=== PATIENT | female | born 1955 | race Caucasian/White ===

== ENCOUNTER 2020-11-21 14:41 | Emergency (ER) | payer MEDICARE, SELFPAY ==
[~2020-11-21 14:41] MED LIST: 3IN1 COMMODE XX; AMARYL2 MG PO; ASPIRIN EC81 MG PO; AVAPRO300 MG PO; CETIRIZINE HCL10 MG PO; COREG 6.25MG6.25 MG PO; FUROSEMIDE 20MG20 MG PO; GLUCAGON EMERGEN1 MG IM; LIPITOR20 MG PO; METFORMIN HCL500 MG PO; NORCO 5-325 TA1 EACH PO; ONGLYZA5 MG PO; PANTOPRAZOLE SO40 MG PO; PRISTIQ25 MG PO; SINGULAIR10 MG PO; SPIRIVA18 MCG INH; SYMBICORT 16010.2 GM INH; VENTOLIN HFA IN18 GM INH; WHEELCHAIR XX
[2020-11-21 17:45] LABS: BILIRUBIN NEGATIVE (NEGATIVE); BLOOD NEGATIVE Ery/uL (NEGATIVE); CLARITY CLEAR (CLEAR); COLOR YELLOW (YELLOW); GLUCOSE (U) NORMAL (NORMAL); LEUKOCYTES 1+ Leu/uL (NEGATIVE); NITRITE NEGATIVE (NEGATIVE); PROTEIN NEGATIVE (NEGATIVE); UROBILINOGEN 0.2 mg/dL (0.2-1.0); pH 5.5 (5.0-9.0)
[2020-11-21 17:49] LABS: BACTERIA TRACE
[2020-11-21 18:11] LABS: BASOPHIL 0.8 % (0-2); EOSINOPHIL 5.2 % (0-7); HGB 14.2 g/dl (12.5-16.0); LYMPHOCYTE 38.6 % (15-48); MCH 31.8 pg (25.0-31.0); MCV 96.2 fL (78.0-100.0); MONOCYTE 7.4 % (0-12); MPV 11.6 fL (6.0-9.5); NEUTROPHIL 47.6 % (41-80); NRBC 0; PLT 244 K/uL (150-400); RBC 4.47 M/uL (4.20-5.40); RDW 13.2 % (11.5-14.0); WBC 14.2 K/uL (4.0-10.5)
[2020-11-21 18:50] LABS: ALBUMIN 3.1 g/dL (3.4-5.0); BILIRUBIN - TOTAL 0.7 mg/dL (0.2-1.0); BUN/CREAT RATIO (CALC) 34.1 RATIO; CREATININE 1.32 mg/dL (0.51-0.95); GLOBULIN (CALCULATION) 3.8 g/dL; POTASSIUM 3.5 mmol/L (3.5-5.1); TOTAL PROTEIN 6.9 g/dL (6.4-8.2)
[2020-11-21] MEDS ORDERED: CIPRO500 MG PO (19:04)
[2020-11-21] MEDS ORDERED: BENTYL10 MG PO (19:04)
== END 2020-11-21 19:18 | disposition home or self-care (01) ==
LOC: FER 14:41
PROVIDERS: Emergency Medicine
DX: K52.9 Noninfective gastroenteritis and colitis, unspecified (principal); I12.9 Hypertensive chronic kidney disease with stage 1 through stage 4 chronic kidney disease, or unspecified chronic kidney disease; E11.22 Type 2 diabetes mellitus with diabetic chronic kidney disease; N18.9 Chronic kidney disease, unspecified; Z87.09 Personal history of other diseases of the respiratory system; Z99.81 Dependence on supplemental oxygen; Z88.5 Allergy status to narcotic agent; Z88.0 Allergy status to penicillin; Z90.49 Acquired absence of other specified parts of digestive tract
CPT/HCPCS: 36415; 80053; 81001; 83690; 85025; 99284; J7030

== ENCOUNTER 2020-12-16 10:04 | Inpatient (IN) | payer MEDICARE, SELFPAY ==
[~2020-12-16 10:04] MED LIST changes: +BENTYL10 MG PO; +CIPRO500 MG PO
[2020-12-16] MEDS ORDERED: OFEV150 MG PO (12:18)
[2020-12-16 13:32] LABS: BASOPHIL 0.9 % (0-2); EOSINOPHIL 3.9 % (0-7); HCT 40.1 % (37.0-47.0); HGB 13.6 g/dl (12.5-16.0); LYMPHOCYTE 36.3 % (15-48); MCH 32.2 pg (25.0-31.0); MCHC 33.9 g/dL (32.0-36.0); MONOCYTE 6.5 % (0-12); MPV 11.5 fL (6.0-9.5); NEUTROPHIL 51.9 % (41-80); NRBC 0; PLT 254 K/uL (150-400); RBC 4.22 M/uL (4.20-5.40); RDW 13.3 % (11.5-14.0); WBC 14.1 K/uL (4.0-10.5)
[2020-12-16 13:54] LABS: ALBUMIN 3.2 g/dL (3.4-5.0); BILIRUBIN - TOTAL 0.8 mg/dL (0.2-1.0); CREATININE 1.48 mg/dL (0.51-0.95); GLOBULIN (CALCULATION) 3.5 g/dL; MAGNESIUM 1.1 mg/dL (1.8-2.4); POTASSIUM 3.3 mmol/L (3.5-5.1); TOTAL PROTEIN 6.7 g/dL (6.4-8.2)
[2020-12-16 17:52] LABS: BILIRUBIN NEGATIVE (NEGATIVE); BLOOD NEGATIVE Ery/uL (NEGATIVE); CLARITY CLEAR (CLEAR); COLOR YELLOW (YELLOW); GLUCOSE (U) NORMAL (NORMAL); LEUKOCYTES NEGATIVE Leu/uL (NEGATIVE); NITRITE NEGATIVE (NEGATIVE); PROTEIN NEGATIVE (NEGATIVE); UROBILINOGEN 0.2 mg/dL (0.2-1.0)
[2020-12-17 05:34] LABS: BASOPHIL 0.8 % (0-2); EOSINOPHIL 8.1 % (0-7); HCT 36.9 % (37.0-47.0); HGB 12.6 g/dl (12.5-16.0); LYMPHOCYTE 42.9 % (15-48); MCH 32.1 pg (25.0-31.0); MCHC 34.1 g/dL (32.0-36.0); MCV 94.1 fL (78.0-100.0); MONOCYTE 7.2 % (0-12); MPV 11.2 fL (6.0-9.5); NEUTROPHIL 40.5 % (41-80); NRBC 0; PLT 216 K/uL (150-400); RBC 3.92 M/uL (4.20-5.40); RDW 13.2 % (11.5-14.0); WBC 10.5 K/uL (4.0-10.5)
[2020-12-17 05:51] LABS: BUN/CREAT RATIO (CALC) 21.5 RATIO; C-REACTIVE PROTEIN 1.5 mg/dL (<=0.90); CREATININE 1.21 mg/dL (0.51-0.95); POTASSIUM 3.6 mmol/L (3.5-5.1)
[2020-12-18 06:02] LABS: BASOPHIL 0.6 % (0-2); EOSINOPHIL 5.1 % (0-7); HCT 38.8 % (37.0-47.0); LYMPHOCYTE 42.2 % (15-48); MCH 32.3 pg (25.0-31.0); MCHC 33.5 g/dL (32.0-36.0); MCV 96.3 fL (78.0-100.0); MONOCYTE 7.4 % (0-12); MPV 11.4 fL (6.0-9.5); NEUTROPHIL 44.2 % (41-80); NRBC 0; PLT 236 K/uL (150-400); RBC 4.03 M/uL (4.20-5.40); RDW 13.7 % (11.5-14.0); WBC 14.8 K/uL (4.0-10.5)
[2020-12-18 06:23] LABS: BUN/CREAT RATIO (CALC) 15.2 RATIO; CREATININE 0.92 mg/dL (0.51-0.95); MAGNESIUM 2.3 mg/dL (1.8-2.4); POTASSIUM 3.5 mmol/L (3.5-5.1)
[2020-12-19] MEDS ORDERED: COLESTID1 GM PO (10:24)
--- NOTE | 2020-12-19 12:56 | NUR ---
1200-PT DISCHARGED HOME. DISCUSSED DISCHARGE INSTRUCTIONS WITH VIVIANA. IN STABLE CONDITION. NO NEEDS FOR EQUIPMENT OR HH. PATIENT HAS HOME O2-2L
--- NOTE | 2020-12-20 10:06 | NUR ---
PT. D/C HOME ON 12/19/20. PT HAS NO NEEDS. HAS HOME O2.
== END 2020-12-19 12:02 | disposition home or self-care (01) | DRG 392 ==
LOC: FMS 10:04
PROVIDERS: Internal Medicine; ADMIT Surgery
PROC: 0DBL8ZX Excision of Transverse Colon, Via Natural or Artificial Opening Endoscopic, Diagnostic (ICD-10-PCS; 2020-12-18)
PROC: 0DBM8ZX Excision of Descending Colon, Via Natural or Artificial Opening Endoscopic, Diagnostic (ICD-10-PCS; 2020-12-18)
PROC: 0DBB8ZX Excision of Ileum, Via Natural or Artificial Opening Endoscopic, Diagnostic (ICD-10-PCS; principal; 2020-12-18 08:00)
PROC: 0DBK8ZX Excision of Ascending Colon, Via Natural or Artificial Opening Endoscopic, Diagnostic (ICD-10-PCS; 2020-12-18 08:00)
DX: K52.9 Noninfective gastroenteritis and colitis, unspecified (principal); N17.9 Acute kidney failure, unspecified; K57.30 Diverticulosis of large intestine without perforation or abscess without bleeding; T50.995A Adverse effect of other drugs, medicaments and biological substances, initial encounter; E86.0 Dehydration; Z20.822 Contact with and (suspected) exposure to COVID-19; J45.909 Unspecified asthma, uncomplicated; F41.8 Other specified anxiety disorders; K21.9 Gastro-esophageal reflux disease without esophagitis; I12.9 Hypertensive chronic kidney disease with stage 1 through stage 4 chronic kidney disease, or unspecified chronic kidney disease; N18.30 Chronic kidney disease, stage 3 unspecified; E11.22 Type 2 diabetes mellitus with diabetic chronic kidney disease; E78.00 Pure hypercholesterolemia, unspecified; G47.30 Sleep apnea, unspecified; J84.112 Idiopathic pulmonary fibrosis; F31.9 Bipolar disorder, unspecified; E83.42 Hypomagnesemia; Z90.49 Acquired absence of other specified parts of digestive tract; Z88.0 Allergy status to penicillin; Z88.5 Allergy status to narcotic agent; Z79.82 Long term (current) use of aspirin; Z79.899 Other long term (current) drug therapy; Z98.890 Other specified postprocedural states; Z99.81 Dependence on supplemental oxygen
CPT/HCPCS: 36415; 80048; 80053; 81003; 83516; 83735; 83880; 83993; 85025; 86140; 87045; 87046; 87449; 88305; J2405; J2704; J3475; J7030; J7120; U0002

== ENCOUNTER 2021-03-06 12:48 | Inpatient (IN) | payer MEDICARE, OTHER ==
[~2021-03-06] VITALS: Ht 154.9 cm; Wt 64.4 kg
[~2021-03-06 12:48] MED LIST changes: +COLESTID1 GM PO; +OFEV150 MG PO
[2021-03-06 15:45] LABS: BASOPHIL 0.5 % (0-2); EOSINOPHIL 2.5 % (0-7); HGB 14.1 g/dl (12.5-16.0); LYMPHOCYTE 31.3 % (15-48); MCH 31.7 pg (25.0-31.0); MCHC 33.6 g/dL (32.0-36.0); MCV 94.4 fL (78.0-100.0); MONOCYTE 8.8 % (0-12); NEUTROPHIL 56.4 % (41-80); NRBC 0; PLT 287 K/uL (150-400); RBC 4.45 M/uL (4.20-5.40); RDW 13.9 % (11.5-14.0); WBC 22.2 K/uL (4.0-10.5)
[2021-03-06 16:03] LABS: BILIRUBIN - TOTAL 0.8 mg/dL (0.2-1.0); BUN/CREAT RATIO (CALC) 15.5 RATIO; CREATININE 0.97 mg/dL (0.51-0.95); GLOBULIN (CALCULATION) 4.9 g/dL; TOTAL PROTEIN 7.9 g/dL (6.4-8.2)
[2021-03-06 16:04] LABS: POTASSIUM 2.3 mmol/L (3.5-5.1)
[2021-03-06 19:17] LABS: CORONAVIRUS 2019 SARS-COV-2 NEGATIVE (NEGATIVE); INFLUENZA A NAA NEGATIVE (NEGATIVE)
[2021-03-07 01:51] LABS: BILIRUBIN NEGATIVE (NEGATIVE); BLOOD NEGATIVE Ery/uL (NEGATIVE); CLARITY CLEAR (CLEAR); COLOR YELLOW (YELLOW); GLUCOSE (U) NORMAL (NORMAL); LEUKOCYTES 1+ Leu/uL (NEGATIVE); NITRITE NEGATIVE (NEGATIVE); PROTEIN NEGATIVE (NEGATIVE); SPECIFIC GRAVITY <=1.005 (1.001-1.030); UROBILINOGEN 0.2 mg/dL (0.2-1.0); pH 5.5 (5.0-9.0)
[2021-03-07 01:57] LABS: BACTERIA TRACE; SQUAMOUS EPITHELIAL CELLS RARE; URINARY RBC RARE
[2021-03-07 01:58] LABS: AMORPHOUS URATES CRYSTALS TRACE
[2021-03-07 05:38] LABS: BASOPHIL 0.8 % (0-2); HGB 12.6 g/dl (12.5-16.0); LYMPHOCYTE 25.3 % (15-48); MCH 32.2 pg (25.0-31.0); MCHC 34.1 g/dL (32.0-36.0); MCV 94.6 fL (78.0-100.0); MONOCYTE 9.8 % (0-12); MPV 11.1 fL (6.0-9.5); NEUTROPHIL 59.8 % (41-80); NRBC 0; PLT 234 K/uL (150-400); RBC 3.91 M/uL (4.20-5.40); RDW 14.3 % (11.5-14.0); WBC 14.1 K/uL (4.0-10.5)
[2021-03-07 05:59] LABS: ALBUMIN 2.4 g/dL (3.4-5.0); BILIRUBIN - TOTAL 0.7 mg/dL (0.2-1.0); BUN/CREAT RATIO (CALC) 13.2 RATIO; CREATININE 0.76 mg/dL (0.51-0.95); PHOSPHORUS 2.4 mg/dL (2.6-4.7); POTASSIUM 3.2 mmol/L (3.5-5.1)
[2021-03-07 06:20] LABS: GLOBULIN (CALCULATION) 3.3 g/dL; MAGNESIUM 2.6 mg/dL (1.8-2.4); TOTAL PROTEIN 5.7 g/dL (6.4-8.2)
[2021-03-08 05:51] LABS: BASOPHIL 0.7 % (0-2); EOSINOPHIL 5.9 % (0-7); HGB 11.5 g/dl (12.5-16.0); LYMPHOCYTE 38.6 % (15-48); MCH 31.4 pg (25.0-31.0); MCHC 32.9 g/dL (32.0-36.0); MCV 95.6 fL (78.0-100.0); MONOCYTE 9.7 % (0-12); MPV 11.4 fL (6.0-9.5); NEUTROPHIL 44.6 % (41-80); NRBC 0; PLT 213 K/uL (150-400); RBC 3.66 M/uL (4.20-5.40); RDW 14.3 % (11.5-14.0); WBC 11.6 K/uL (4.0-10.5)
[2021-03-08 06:26] LABS: ALBUMIN 2.1 g/dL (3.4-5.0); BILIRUBIN - TOTAL 0.7 mg/dL (0.2-1.0); CREATININE 0.75 mg/dL (0.51-0.95); GLOBULIN (CALCULATION) 2.9 g/dL; POTASSIUM 3.9 mmol/L (3.5-5.1)
[2021-03-08 06:35] LABS: MAGNESIUM 1.8 mg/dL (1.8-2.4)
[2021-03-09] MEDS ORDERED: NORCO 5-325 TA1 EACH PO (11:51)
--- NOTE | 2021-03-09 14:42 | NUR ---
PATIENT IN STABLE CONDITION. D/C HOME WITH DAUGHTER. DISCUSSED DISCHARGE INSTRUCTIONS WITH PATIENT AND DAUGHTER. PAIN SCRIPT SENT TO PHARMACY. IV REMOVED PRIOR TO DISCHARGE, PRESSURE HELD. NO BLEEDING NOTED.
== END 2021-03-09 14:30 | disposition home or self-care (01) | DRG 393 ==
LOC: FER 12:48 → FMS 17:52
PROVIDERS: Nurse Practitioner; Nurse Practitioner Family; ADMIT Internal Medicine
DX: K52.1 Toxic gastroenteritis and colitis (principal); K85.90 Acute pancreatitis without necrosis or infection, unspecified; J96.10 Chronic respiratory failure, unspecified whether with hypoxia or hypercapnia; T48.995A Adverse effect of other agents primarily acting on the respiratory system, initial encounter; E87.6 Hypokalemia; E83.42 Hypomagnesemia; E11.9 Type 2 diabetes mellitus without complications; J45.909 Unspecified asthma, uncomplicated; F32.9 Major depressive disorder, single episode, unspecified; E78.5 Hyperlipidemia, unspecified; I10 Essential (primary) hypertension; Z20.822 Contact with and (suspected) exposure to COVID-19; J84.10 Pulmonary fibrosis, unspecified; Z79.82 Long term (current) use of aspirin; Z79.899 Other long term (current) drug therapy; Z88.0 Allergy status to penicillin; Z88.5 Allergy status to narcotic agent; Z90.49 Acquired absence of other specified parts of digestive tract; Z90.89 Acquired absence of other organs
CPT/HCPCS: 36415; 71260; 80053; 81001; 82150; 82962; 83605; 83690; 83735; 84100; 84145; 85025; 87045; 87046; 87205; 94010; 94760; C9113; J1650; J1885; J1956; J3475; J3480; J7030; Q9967; U0002

== ENCOUNTER 2021-08-25 14:29 | Emergency (ER) | payer MEDICARE ==
[2021-08-25 16:33] LABS: BASOPHIL 0.5 % (0-2); EOSINOPHIL 2.7 % (0-7); HCT 42.9 % (37.0-47.0); HGB 13.5 g/dl (12.5-16.0); LYMPHOCYTE 38.9 % (15-48); MCHC 31.5 g/dL (32.0-36.0); MCV 101.7 fL (78.0-100.0); MONOCYTE 5.3 % (0-12); NEUTROPHIL 52.2 % (41-80); NRBC 0; PLT 254 K/uL (150-400); RBC 4.22 M/uL (4.20-5.40); RDW 14.4 % (11.5-14.0); WBC 12.4 K/uL (4.0-10.5)
[2021-08-25 16:48] LABS: BUN/CREAT RATIO (CALC) 15.9 RATIO; CREATININE 0.88 mg/dL (0.51-0.95); POTASSIUM 4.1 mmol/L (3.5-5.1)
[2021-08-25] MEDS ORDERED: VENTOLIN HFA IN18 GM INH (20:03)
[2021-08-25] MEDS ORDERED: ZPAK PO (20:03)
[2021-08-25] MEDS ORDERED: MEDROL 4MG DOSEP4 MG PO (20:03)
== END 2021-08-25 20:56 | disposition home or self-care (01) ==
LOC: FER 14:29
PROVIDERS: Nurse Practitioner Family
DX: J18.9 Pneumonia, unspecified organism (principal); I10 Essential (primary) hypertension; E11.9 Type 2 diabetes mellitus without complications; Z88.0 Allergy status to penicillin; Z88.8 Allergy status to other drugs, medicaments and biological substances
CPT/HCPCS: 36415; 71045; 71260; 80048; 85025; J1100; Q9967

== ENCOUNTER 2022-03-03 12:54 | Inpatient (IN) | payer MEDICARE ==
[~2022-03-03] VITALS: Ht 157.5 cm; Wt 62.9 kg
[~2022-03-03 12:54] MED LIST changes: +MEDROL 4MG DOSEP4 MG PO; +ZPAK PO
[2022-03-03 13:17] LABS: BASOPHIL 0.6 % (0-2); EOSINOPHIL 2.6 % (0-7); HCT 45.9 % (37.0-47.0); MCHC 32.7 g/dL (32.0-36.0); MCV 94.8 fL (78.0-100.0); MONOCYTE 7.7 % (0-12); MPV 11.7 fL (6.0-9.5); NEUTROPHIL 39.2 % (41-80); NRBC 0; PLT 183 K/uL (150-400); RBC 4.84 M/uL (4.20-5.40); RDW 15.7 % (11.5-14.0); WBC 18.8 K/uL (4.0-10.5)
[2022-03-03 13:18] LABS: LYMPHOCYTE 49.5 % (15-48)
[2022-03-03 13:45] LABS: BILIRUBIN - TOTAL 0.8 mg/dL (0.2-1.0); BUN/CREAT RATIO (CALC) 22.8 RATIO; CREATININE 0.92 mg/dL (0.51-0.95); GLOBULIN (CALCULATION) 3.4 g/dL; POTASSIUM 4.1 mmol/L (3.5-5.1); TOTAL PROTEIN 6.4 g/dL (6.4-8.2)
[2022-03-03 15:01] LABS: INFLUENZA A NAA NEGATIVE (NEGATIVE)
[2022-03-03 15:23] LABS: CORONAVIRUS 2019 SARS-COV-2 POSITIVE (NEGATIVE)
[2022-03-03] MEDS ORDERED: UROCIT-K10 MEQ PO (19:21)
[2022-03-03] MEDS ORDERED: K-TAB ER10 MEQ PO (19:25)
[2022-03-03] MEDS ORDERED: LASIX20 MG PO (19:26)
[2022-03-03] MEDS ORDERED: PROMETHAZI6.25 MG/5 PO (19:28)
[2022-03-03] MEDS ORDERED: BUDESONIDE EC3 MG PO (19:29)
[2022-03-03] MEDS ORDERED: TESSALON PERLE100 MG PO (19:29)
[2022-03-03] MEDS ORDERED: ATARAX25 MG PO (19:30)
[2022-03-04 06:24] LABS: BASOPHIL 0.2 % (0-2); EOSINOPHIL 0 % (0-7); HCT 39.7 % (37.0-47.0); HGB 12.7 g/dl (12.5-16.0); LYMPHOCYTE 35.2 % (15-48); MCH 30.6 pg (25.0-31.0); MCV 95.7 fL (78.0-100.0); MONOCYTE 4.8 % (0-12); MPV 11.8 fL (6.0-9.5); NEUTROPHIL 59.3 % (41-80); NRBC 0; PLT 152 K/uL (150-400); RBC 4.15 M/uL (4.20-5.40); RDW 15.9 % (11.5-14.0); WBC 8.3 K/uL (4.0-10.5)
[2022-03-04 10:03] LABS: C-REACTIVE PROTEIN 3.9 mg/dL (<=0.90); CREATININE 0.91 mg/dL (0.51-0.95); MAGNESIUM 1.3 mg/dL (1.8-2.4); PHOSPHORUS 3.4 mg/dL (2.6-4.7); POTASSIUM 4.2 mmol/L (3.5-5.1)
[2022-03-04 14:24] LABS: BILIRUBIN NEGATIVE (NEGATIVE); BLOOD NEGATIVE Ery/uL (NEGATIVE); CLARITY CLEAR (CLEAR); COLOR YELLOW (YELLOW); GLUCOSE (U) NORMAL (NORMAL); LEUKOCYTES NEGATIVE Leu/uL (NEGATIVE); NITRITE NEGATIVE (NEGATIVE); PROTEIN NEGATIVE (NEGATIVE); SPECIFIC GRAVITY 1.015 (1.001-1.030); UROBILINOGEN 0.2 mg/dL (0.2-1.0); pH 5.5 (5.0-9.0)
[2022-03-05 06:41] LABS: HCT 39.7 % (37.0-47.0); HGB 12.9 g/dl (12.5-16.0); MCHC 32.5 g/dL (32.0-36.0); MCV 95.4 fL (78.0-100.0); RBC 4.16 M/uL (4.20-5.40); RDW 15.9 % (11.5-14.0); WBC 11.7 K/uL (4.0-10.5)
[2022-03-05 06:55] LABS: BUN/CREAT RATIO (CALC) 27.2 RATIO; CREATININE 0.92 mg/dL (0.51-0.95); MAGNESIUM 1.8 mg/dL (1.8-2.4)
--- NOTE | 2022-03-05 14:27 | NUR ---
03/05 Ms. Logan lives alone. She would like [facility] HH if needed at discharge. She has 02 (up to 10L), portable, wc, scooter, 3in1, s. seat, and rw.
[2022-03-06 06:36] LABS: BASOPHIL 0.9 % (0-2); EOSINOPHIL 3.5 % (0-7); HCT 44.1 % (37.0-47.0); HGB 13.8 g/dl (12.5-16.0); LYMPHOCYTE 57.2 % (15-48); MCH 31.1 pg (25.0-31.0); MCHC 31.3 g/dL (32.0-36.0); MCV 99.3 fL (78.0-100.0); MONOCYTE 6.9 % (0-12); NEUTROPHIL 31.2 % (41-80); NRBC 0; PLT 139 K/uL (150-400); RBC 4.44 M/uL (4.20-5.40); RDW 16.2 % (11.5-14.0); WBC 11.6 K/uL (4.0-10.5)
[2022-03-06 06:55] LABS: BUN/CREAT RATIO (CALC) 32.1 RATIO; CREATININE 0.84 mg/dL (0.51-0.95); MAGNESIUM 1.7 mg/dL (1.8-2.4); POTASSIUM 4.6 mmol/L (3.5-5.1)
== END 2022-03-07 11:20 | disposition home health service (06) | DRG 871 ==
LOC: FER 12:54 → FTCU 16:03
PROVIDERS: Emergency Medicine; Nurse Practitioner; Nurse Practitioner Acute Care; ADMIT Internal Medicine
PROC: XW033E5 Introduction of Remdesivir Anti-infective into Peripheral Vein, Percutaneous Approach, New Technology Group 5 (ICD-10-PCS; principal; 2022-03-03)
PROC: 3E0333Z Introduction of Anti-inflammatory into Peripheral Vein, Percutaneous Approach (ICD-10-PCS; 2022-03-03)
PROC: 3E03329 Introduction of Other Anti-infective into Peripheral Vein, Percutaneous Approach (ICD-10-PCS; 2022-03-03)
PROC: 8E0ZXY6 Isolation (ICD-10-PCS; 2022-03-03)
DX: A41.89 Other specified sepsis (principal); U07.1 COVID-19; J96.21 Acute and chronic respiratory failure with hypoxia; J15.9 Unspecified bacterial pneumonia; J12.82 Pneumonia due to coronavirus disease 2019; I13.0 Hypertensive heart and chronic kidney disease with heart failure and stage 1 through stage 4 chronic kidney disease, or unspecified chronic kidney disease; E87.2 Acidosis; I50.30 Unspecified diastolic (congestive) heart failure; R65.20 Severe sepsis without septic shock; J84.112 Idiopathic pulmonary fibrosis; Z66 Do not resuscitate; E11.22 Type 2 diabetes mellitus with diabetic chronic kidney disease; N18.2 Chronic kidney disease, stage 2 (mild); J45.909 Unspecified asthma, uncomplicated; I27.20 Pulmonary hypertension, unspecified; E78.5 Hyperlipidemia, unspecified; E11.65 Type 2 diabetes mellitus with hyperglycemia; F32.A Depression, unspecified; Z83.3 Family history of diabetes mellitus; Z82.49 Family history of ischemic heart disease and other diseases of the circulatory system; Z90.49 Acquired absence of other specified parts of digestive tract; Z88.0 Allergy status to penicillin; Z88.5 Allergy status to narcotic agent; Z99.81 Dependence on supplemental oxygen; Z79.82 Long term (current) use of aspirin; Z79.899 Other long term (current) drug therapy
CPT/HCPCS: 36415; 36600; 71045; 71250; 80048; 80053; 80202; 81003; 82728; 82803; 82962; 83036; 83605; 83615; 83735; 83880; 84100; 84145; 84484; 85025; 85379; 86140; 87040; 93005; 94640; 94664; 94667; 94668; 94760; 94762; C9399; J0456; J0696; J1100; J1650; J1940; J3370; J3475; J7030; J7040; J7050; U0002

== ENCOUNTER 2022-04-23 09:14 | Emergency (ER) | payer MEDICARE ==
[~2022-04-23 09:14] MED LIST changes: +ATARAX25 MG PO; +BUDESONIDE EC3 MG PO; +K-TAB ER10 MEQ PO; +LASIX20 MG PO; +PROMETHAZI6.25 MG/5 PO; +TESSALON PERLE100 MG PO; +UROCIT-K10 MEQ PO
[2022-04-23 09:45] LABS: BASOPHIL 1.1 % (0-2); HCT 44.3 % (37.0-47.0); HGB 14.2 g/dl (12.5-16.0); LYMPHOCYTE 41.6 % (15-48); MCH 31.4 pg (25.0-31.0); MCHC 32.1 g/dL (32.0-36.0); MPV 11.2 fL (6.0-9.5); NEUTROPHIL 44.6 % (41-80); NRBC 0; PLT 324 K/uL (150-400); RBC 4.52 M/uL (4.20-5.40); RDW 16.3 % (11.5-14.0); WBC 15.3 K/uL (4.0-10.5)
[2022-04-23 10:08] LABS: BUN/CREAT RATIO (CALC) 21.6 RATIO; CREATININE 0.97 mg/dL (0.51-0.95); POTASSIUM 4.1 mmol/L (3.5-5.1)
== END 2022-04-23 13:16 | disposition home or self-care (01) ==
LOC: FER 09:14
PROVIDERS: Emergency Medicine
DX: J84.10 Pulmonary fibrosis, unspecified (principal); J44.9 Chronic obstructive pulmonary disease, unspecified; I10 Essential (primary) hypertension; Z88.0 Allergy status to penicillin; Z88.5 Allergy status to narcotic agent
CPT/HCPCS: 36415; 71046; 80048; 84484; 85025; 93005

== ENCOUNTER 2022-06-01 14:17 | Inpatient (IN) | payer MEDICARE ==
[~2022-06-01] VITALS: Ht 157.5 cm; Wt 66.0 kg
[2022-06-01 14:59] LABS: BASOPHIL 0.6 % (0-2); EOSINOPHIL 2.9 % (0-7); HCT 45.7 % (37.0-47.0); LYMPHOCYTE 49.6 % (15-48); MCH 30.7 pg (25.0-31.0); MCHC 32.8 g/dL (32.0-36.0); MCV 93.6 fL (78.0-100.0); MONOCYTE 5.8 % (0-12); MPV 11.4 fL (6.0-9.5); NEUTROPHIL 40.7 % (41-80); NRBC 0; PLT 299 K/uL (150-400); RBC 4.88 M/uL (4.20-5.40); RDW 15.4 % (11.5-14.0)
[2022-06-01 15:00] LABS: WBC 18.4 K/uL (4.0-10.5)
[2022-06-01 15:22] LABS: INR 1.14 (0.9-1.2); LACTIC ACID 2.9 mmol/L (0.4-1.9); PROTHROMBIN TIME 14.3 SECONDS (11.9-13.9); PTT 29.2 SECONDS (24.9-34.6)
[2022-06-01 15:49] LABS: ALBUMIN 3.1 g/dL (3.4-5.0); BILIRUBIN - TOTAL 0.9 mg/dL (0.2-1.0); BUN/CREAT RATIO (CALC) 42.3 RATIO; CREATININE 1.04 mg/dL (0.51-0.95); GLOBULIN (CALCULATION) 3.5 g/dL; POTASSIUM 4.2 mmol/L (3.5-5.1); TOTAL PROTEIN 6.6 g/dL (6.4-8.2)
[2022-06-01 16:32] LABS: BILIRUBIN NEGATIVE (NEGATIVE); BLOOD 1+ Ery/uL (NEGATIVE); CLARITY CLEAR (CLEAR); COLOR YELLOW (YELLOW); GLUCOSE (U) NORMAL (NORMAL); LEUKOCYTES TRACE Leu/uL (NEGATIVE); NITRITE NEGATIVE (NEGATIVE); PROTEIN 2+ mg/dL (NEGATIVE); pH 5.5 (5.0-9.0)
[2022-06-01 16:33] LABS: CORONAVIRUS 2019 SARS-COV-2 NEGATIVE (NEGATIVE); INFLUENZA A NAA NEGATIVE (NEGATIVE)
[2022-06-01 16:43] LABS: BACTERIA TRACE; URINARY RBC RARE
[2022-06-02 05:44] LABS: BASOPHIL 0.4 % (0-2); EOSINOPHIL 0 % (0-7); HCT 40.9 % (37.0-47.0); HGB 13.1 g/dl (12.5-16.0); LYMPHOCYTE 10.4 % (15-48); MCH 30.3 pg (25.0-31.0); MCV 94.5 fL (78.0-100.0); MONOCYTE 1.9 % (0-12); MPV 11.3 fL (6.0-9.5); NEUTROPHIL 86.5 % (41-80); NRBC 0; PLT 234 K/uL (150-400); RBC 4.33 M/uL (4.20-5.40); RDW 15.1 % (11.5-14.0); WBC 7.3 K/uL (4.0-10.5)
[2022-06-02 06:10] LABS: BILIRUBIN - TOTAL 1.3 mg/dL (0.2-1.0); BUN/CREAT RATIO (CALC) 38.2 RATIO; C-REACTIVE PROTEIN 3.4 mg/dL (<=0.90); CREATININE 1.23 mg/dL (0.51-0.95); GLOBULIN (CALCULATION) 3.2 g/dL; MAGNESIUM 2.1 mg/dL (1.8-2.4); POTASSIUM 4.5 mmol/L (3.5-5.1); TOTAL PROTEIN 6.2 g/dL (6.4-8.2)
[2022-06-03 06:15] LABS: HCT 40.2 % (37.0-47.0); MCHC 32.3 g/dL (32.0-36.0); MCV 92.8 fL (78.0-100.0); MPV 11.7 fL (6.0-9.5); RBC 4.33 M/uL (4.20-5.40)
--- NOTE | 2022-06-03 06:37 | NUR ---
RN NOTICED A PRN ORDER FOR MORPHINE, WHICH IS LISTED AN ALLERGY. RN CALLED GUN TESTER TO QUESTION ORDER AND GUN TESTER SAID ORDER WAS VALID DUE TO VARIOUS REASONS. ORDER DOUBLED CHECKED AND VERIFIED.
[2022-06-03 06:42] LABS: ALBUMIN 2.8 g/dL (3.4-5.0); BILIRUBIN - DIRECT 0.4 mg/dL (0.00-0.20); BILIRUBIN - TOTAL 0.6 mg/dL (0.2-1.0); BUN/CREAT RATIO (CALC) 42.2 RATIO; C-REACTIVE PROTEIN 1.6 mg/dL (<=0.90); CREATININE 1.28 mg/dL (0.51-0.95); GLOBULIN (CALCULATION) 3.4 g/dL; POTASSIUM 4.9 mmol/L (3.5-5.1); TOTAL PROTEIN 6.2 g/dL (6.4-8.2)
[2022-06-03 06:43] LABS: WBC 16.1 K/uL (4.0-10.5)
[2022-06-04 05:43] LABS: HCT 39.6 % (37.0-47.0); HGB 12.9 g/dl (12.5-16.0); MCH 29.9 pg (25.0-31.0); MCHC 32.6 g/dL (32.0-36.0); MCV 91.9 fL (78.0-100.0); MPV 11.7 fL (6.0-9.5); RBC 4.31 M/uL (4.20-5.40); RDW 15.1 % (11.5-14.0); WBC 12.1 K/uL (4.0-10.5)
[2022-06-04 06:13] LABS: ALBUMIN 2.7 g/dL (3.4-5.0); BILIRUBIN - TOTAL 0.6 mg/dL (0.2-1.0); BUN/CREAT RATIO (CALC) 46.2 RATIO; CREATININE 1.19 mg/dL (0.51-0.95); GLOBULIN (CALCULATION) 3.1 g/dL; POTASSIUM 4.8 mmol/L (3.5-5.1); TOTAL PROTEIN 5.8 g/dL (6.4-8.2)
--- NOTE | 2022-06-04 11:49 | NUR ---
DURING ROUNDING PT WAS RECCOMEENDED TO GO TO [facility]; I DID GO AND SPEAK TO PT SHE WANTED ME TO CALL HER DTR TO FIND WHICH ONE WAS CONVENENT; CALLED NICHOLE SHE SAID EARNEST; REACHED OUT TO CALL LEFT MSG WITH JOANNA PENDING CALLBACK
--- NOTE | 2022-06-04 12:05 | NUR ---
FAXED REFFERAL TO JOANNA THEY ARE REVIEWING CASE NOW
--- NOTE | 2022-06-04 12:06 | NUR ---
FAXED [facility]AN[facility] REFFERAL TO [phone] STEPHANIE WEEMS REVIEWING REFFERAL
--- NOTE | 2022-06-04 15:43 | NUR ---
THE TRANSFER ADDRESS IS [id number] [facility] REPORT NUMBER [phone] THEY HAVE REQUESTED NOT TO TAKE OUT HER IV
--- NOTE | 2022-06-04 17:24 | NUR ---
TRANSFERRED BY BLS TO [facility] IN [place], FAMILY NOTIFIED. REPORT GIVEN TO WILLA ON 6TH FLOOR. IV LEFT IN PLACE PER JOANNA REQUEST. STARKS LEFT IN PLACE FOR TRANSPORT, dR Montemayor AWARE.
[2022-06-06 15:11] LABS: ORGANISM ID Not indicated. (.); SPECIMEN SOURCE Urine (.); STREPTOCOCCUS PNEUMONIAE AG Negative (Negative)
== END 2022-06-04 17:05 | DRG 196 ==
LOC: FER 14:17 → FTCU 21:26 → FICU 21:26 → FTCU 06-03 11:03
PROVIDERS: Internal Medicine; Nurse Practitioner Acute Care; ADMIT Family Medicine
PROC: 5A0935A Assistance with Respiratory Ventilation, Less than 24 Consecutive Hours, High Flow/Velocity Cannula (ICD-10-PCS; principal; 2022-06-01)
DX: J84.10 Pulmonary fibrosis, unspecified (principal); I50.33 Acute on chronic diastolic (congestive) heart failure; J96.21 Acute and chronic respiratory failure with hypoxia; R65.11 Systemic inflammatory response syndrome (SIRS) of non-infectious origin with acute organ dysfunction; E87.2 Acidosis; N17.9 Acute kidney failure, unspecified; J44.0 Chronic obstructive pulmonary disease with (acute) lower respiratory infection; E87.1 Hypo-osmolality and hyponatremia; I13.0 Hypertensive heart and chronic kidney disease with heart failure and stage 1 through stage 4 chronic kidney disease, or unspecified chronic kidney disease; Z20.822 Contact with and (suspected) exposure to COVID-19; Z66 Do not resuscitate; E11.65 Type 2 diabetes mellitus with hyperglycemia; I27.20 Pulmonary hypertension, unspecified; N18.30 Chronic kidney disease, stage 3 unspecified; E11.22 Type 2 diabetes mellitus with diabetic chronic kidney disease; R74.01 Elevation of levels of liver transaminase levels; N18.2 Chronic kidney disease, stage 2 (mild); R82.71 Bacteriuria; E11.43 Type 2 diabetes mellitus with diabetic autonomic (poly)neuropathy; K31.84 Gastroparesis; E78.5 Hyperlipidemia, unspecified; F41.9 Anxiety disorder, unspecified; Z90.49 Acquired absence of other specified parts of digestive tract; Z82.49 Family history of ischemic heart disease and other diseases of the circulatory system; Z83.3 Family history of diabetes mellitus; Z88.0 Allergy status to penicillin
CPT/HCPCS: 36415; 36600; 71045; 71250; 71275; 76705; 80048; 80053; 80076; 81001; 82803; 82962; 83036; 83605; 83690; 83735; 83880; 84100; 84145; 84484; 85025; 85379; 85610; 85730; 86140; 87040; 87088; 87449; 93005; 94640; 94664; 94760; 94762; 96374; 96375; C9113; J0692; J1100; J1650; J1940; J2060; J2270; J2405; J2543; J2920; J3370; J3475; J7030; J7050; J7512; Q9967; U0002